=== PATIENT | female | born 1935 | race Caucasian/White ===

== ENCOUNTER → 2016-09-22 | Outpatient (CLI) | payer MEDICARE ==
[2016-09-22 08:06] LABS: BASOPHILS % (AUTO) 2 % (0-2); EOSINOPHILS # (AUTO) 0.2 10^3uL; EOSINOPHILS % (AUTO) 4 % (0-4); LYMPHOCYTES # (AUTO) 1.6 X10^3; MEAN CORPUSCULAR HEMOGLOBIN 29.7 PG (26.0-34.0); MEAN CORPUSCULAR HGB CONC 34.8 g/dL (31.0-37.0); MEAN CORPUSCULAR VOLUME 86 FL (80-100); MEAN PLATELET VOLUME 9.9 FL (6.0-9.5); MONOCYTES # (AUTO) 0.4 X10^3; MONOCYTES % (AUTO) 9 % (3-11); NEUTROPHILS # (AUTO) 2.3 X10^3; NEUTROPHILS % (AUTO) 50 % (51-67); PLATELET COUNT 206 10^3uL (150-450); WHITE BLOOD COUNT 4.59 10^3uL (4.0-11.0)
[2016-09-22 08:33] LABS: ALBUMIN 4.4 g/dL (3.4-5.0); ANION GAP 16.4 MEQ/L (3-15); CALCULATED IONIZED CALCIUM 4.4 mg/dL (3.8-4.6); TOTAL PROTEIN 7.1 g/dL (6.4-8.5)
== END ==
LOC: RAD 07:52
PROVIDERS: ATTEND Internal Medicine Hematology & Oncology
DX: C50.612 Malignant neoplasm of axillary tail of left female breast (principal); Z78.0 Asymptomatic menopausal state
CPT/HCPCS: 36415; 76642; 77080; 80053; 85025; 86300; G0206